=== PATIENT | male | born 1980 | race Caucasian/White ===

== ENCOUNTER 2021-03-31 01:41 | Day surgery (SDC) | payer OTHER, SELFPAY ==
[2021-03-14 14:01] VITALS: BMI 25.9
--- NOTE | 2021-03-30 12:27 | P.PNAN_ITS ---
Anes - Initial Pre Proc Eval Procedure: Operation Date: 03/31/21 08:30 Proposed Procedures p Esophagogastroduodenoscopy - Brandon Hampton MD Date/Time: 03/30/21 12:27 Surgeon: Brandon Hampton MD Pre Op Diagnosis: Dysphagia Patient Data Age: 40 Gender: M Height: 1.7 m Weight: 75 kg Allergies Allergy/AdvReac Type Severity Reaction Status Date / Time tramadol Allergy Intermediate rash Verified 03/31/21 07:26 Home Medications Medication Instructions Recorded Confirmed Type No Home Medications 03/14/21 03/31/21 History Patient hx anesthesia problems: none Family hx anesthesia problems: none [facility] Past Medical History Medical History (Updated 02/24/21 @ 10:58 by ANAY Bran) Asthma GERD (gastroesophageal reflux disease) Peptic ulcer disease Seizure as a child Surgical History Surgical History H/O left knee surgery H/O right knee surgery H/O ventral hernia repair x2 History of colonoscopy Status post left foot surgery x3 Status post right foot surgery Family History Family History Mother Hypertension Diabetes mellitus Skin cancer Father Cancer of spinal column Sibling Breast cancer Other Diabetes mellitus Cancer Other Family history of allergic disorder Social History Social History Smoking status: Never smoker Smoking end date: 10/07/07 Alcohol intake: never Substance use: unknown Living arrangements: with family Additional occupation/education comments: self employed Gender identity (if verbalized by the patient): Male Spiritual care concerns: No Anes - Eval Final PreProcedure Day of Procedure 03/30/21 12:27 Patient weight: normal Heart: regular rate and rhythm Lungs: clear to auscultation and normal air movement Airway: Mallampati scale class II Neurological: alert and oriented Last oral intake: >/= 8 hours ASA classification: II Emergent: no Anesthetic plan: proceed Anesthesia type and monitoring: general GIVS Informed Consent: The patient's anesthetic plan and its attendant risks and benefits were discussed with the patient/family/POA. Questions were solicited and answers provided to the satisfaction of the patient/family/POA.
[2021-03-31 07:27] VITALS: BP 144/85; PULSE 63; RESP 15; TEMP 36.4; O2SAT 100; BMI 26.8
[2021-03-31] MEDS: LACTATED RINGERS 1,000 ML 150 ML IV CONT (07:30)
--- NOTE | 2021-03-31 07:55 | PM.HPGS ---
History of Present Illness History of Present Illness Consent: Risks, benefits, and alternatives have been discussed and questions answered. Patient agrees to proceed with procedure. Chief complaint: Dysphagia Narrative: Junior Ba De Dios is a 40 year old male referred to office for c/o of dysphagia that is progressively getting worse over the past 1-2 years. Reports symptoms worse with breads and solids. States food gets stuck in mid chest area. He will drink more water to help pass the food but here lately this is not working as well. He had in EGD with Dr. Goldstein back in 2017 with esophagitis. He was started on omeprazole 20 mg daily but only took for one year then stopped. He reports reflux symptoms almost daily, worse at night. Also nausea and occasional dry heaving in the AM. He has mild improvement with tums. He denies Nsaid use. Reports that he chewed tobacco for 10 years but stopped when he was 27. Last colonoscopy in 2017 for diarrhea and rectal bleeding, was found to have sigmoid colitis and hemorrhoids (recs reviewed). He has been doing well since. Does report occasional blood on tissue after BM that is not bothersome and resolves in within 1-2 days. Review of Systems Review of Systems: All systems reviewed & are unremarkable except as noted in HPI and below PMFSH Past Medical History Medical History Asthma GERD (gastroesophageal reflux disease) Peptic ulcer disease Seizure as a child Surgical History Surgical History H/O left knee surgery H/O right knee surgery H/O ventral hernia repair x2 History of colonoscopy Status post left foot surgery x3 Status post right foot surgery Family History Family History Mother Hypertension Diabetes mellitus Skin cancer Father Cancer of spinal column Sibling Breast cancer Other Diabetes mellitus Cancer Other Family history of allergic disorder Social History Social History Smoking status: Never smoker Smoking end date: 10/07/07 Alcohol intake: never Substance use: unknown Living arrangements: with family Additional occupation/education comments: self employed Gender identity (if verbalized by the patient): Male Spiritual care concerns: No Meds Home Medications and Allergies Home Medications Medication Instructions Recorded Confirmed Type No Home Medications 03/14/21 03/31/21 History Allergies Allergy/AdvReac Type Severity Reaction Status Date / Time tramadol Allergy Intermediate rash Verified 03/31/21 07:26 Vital Signs Vital Signs - 24 hr 03/31/21 07:27 Temperature 36.4 C L Pulse Rate 63 Respiratory Rate 15 Blood Pressure 144/85 H Pulse Oximetry 100 Exam Const: General: alert Orientation/consciousness: patient oriented x3 Resp: Auscultation: clear to auscultation bilaterally Cardio: Rhythm: regular rhythm GI: GI Palp: Yes Soft to palpation and No Tenderness to palpation present (GI) Neuro: General: patient oriented x3 Assessment and Plan Assessment and plan (1) Dysphagia: Code(s): R13.10 - Dysphagia, unspecified Status: Acute Assessment and Plan: EGD with possible biopsy or dilatation or cautery.
[2021-03-31 08:44] VITALS: BP 113/82; PULSE 63; RESP 16; O2SAT 98
[2021-03-31 08:54] VITALS: BP 112/80; PULSE 56; RESP 17; O2SAT 98
[2021-03-31 09:04] VITALS: BP 125/83; PULSE 63; RESP 18; O2SAT 100
== END 2021-03-31 09:13 | disposition home or self-care (01) ==
PROVIDERS: PCP Nurse Practitioner Psychiatric/Mental Health; Visit Provider Internal Medicine Gastroenterology
PROC: 0DJ08ZZ Inspection of Upper Intestinal Tract, Via Natural or Artificial Opening Endoscopic (ICD-10-PCS; CPT 43235; principal; 2021-03-31 08:30)
DX: R13.19 Other dysphagia (principal); K21.00 Gastro-esophageal reflux disease with esophagitis, without bleeding; K22.2 Esophageal obstruction; K44.9 Diaphragmatic hernia without obstruction or gangrene; J45.909 Unspecified asthma, uncomplicated; Z87.11 Personal history of peptic ulcer disease
CPT/HCPCS: 43249; 88305; C1726; J2001; J2704; J7120

== ENCOUNTER 2023-07-19 03:53 | Day surgery (SDC) | payer OTHER, SELFPAY ==
[2023-07-05 14:30] VITALS: BMI 25.9
--- NOTE | 2023-07-17 21:05 | PM.HPGS ---
History of Present Illness History of Present Illness Consent: Risks, benefits, and alternatives have been discussed and questions answered. Patient agrees to proceed with procedure. Chief complaint: GERD w/o esophagitis, Dysphagia Narrative: Junior Ba De Dios is a 42 year old male having increasing dysphgia. Had EGD and dilatation of stricture 2 years ago. Review of Systems Review of Systems: All systems reviewed & are unremarkable except as noted in HPI and below PMFSH Past Medical History Medical History Asthma GERD (gastroesophageal reflux disease) Peptic ulcer disease Seizure as a child Surgical History Surgical History H/O left knee surgery H/O right knee surgery H/O ventral hernia repair x2 History of colonoscopy Status post left foot surgery x3 Status post right foot surgery Family History Family History Mother Hypertension Diabetes mellitus Skin cancer Father Cancer of spinal column Sibling Breast cancer Other Diabetes mellitus Cancer Other Family history of allergic disorder Social History Social History Smoking status: Never smoker Smoking end date: 10/07/07 Alcohol intake: never Substance use: never Substance use type: does not use Living arrangements: with family Occupation/Education: occupation Additional occupation/education comments: self employed Gender identity (if verbalized by the patient): Male Spiritual care concerns: No Meds Home Medications and Allergies Home Medications Medication Instructions Recorded Confirmed Type No Home Medications 07/05/23 07/19/23 History Allergies Allergy/AdvReac Type Severity Reaction Status Date / Time tramadol Allergy Intermediate rash Verified 07/19/23 08:56 Exam Const: General: alert Orientation/consciousness: patient oriented x3 Resp: Auscultation: clear to auscultation bilaterally Cardio: Rhythm: regular rhythm GI: GI Palp: Yes Soft to palpation and No Tenderness to palpation present (GI) Neuro: General: patient oriented x3 Assessment and Plan Assessment and plan (1) Dysphagia: Code(s): R13.10 - Dysphagia, unspecified Status: Acute Assessment and Plan: EGD with possible biopsy or dilatation or cautery.
[2023-07-19 08:57] VITALS: BP 131/78; PULSE 65; RESP 16; TEMP 36.4; O2SAT 100; BMI 26.9
[2023-07-19] MEDS: LACTATED RINGERS 1,000 ML 150 ML IV CONT (09:01)
--- NOTE | 2023-07-19 09:43 | P.PNAN_ITS ---
Anes - Initial Pre Proc Eval Procedure: Operation Date: 07/19/23 09:30 Proposed Procedures p Esophagogastroduodenoscopy EGD possible dilatation - Brandon Hampton MD Date/Time: 07/19/23 09:43 Surgeon: Brandon Hampton MD Pre Op Diagnosis: GERD w/o esophagitis, Dysphagia Patient Data Age: 42 Gender: M Height: 1.7 m Weight: 77.8 kg Last Vital Signs Temp 97.6 F 07/19/23 08:57 Pulse 65 07/19/23 08:57 Resp 16 07/19/23 08:57 BP 131/78 07/19/23 08:57 Pulse Ox 100 07/19/23 08:57 O2 Del Method Room Air 07/19/23 08:57 Allergies Allergy/AdvReac Type Severity Reaction Status Date / Time tramadol Allergy Intermediate rash Verified 07/19/23 08:56 Home Medications Medication Instructions Recorded Confirmed Type No Home Medications 07/05/23 07/19/23 History Patient hx anesthesia problems: none Family hx anesthesia problems: none Results Review: All pre-operative results and documents have been reviewed as part of the pre- operative evaluation. REPLACED BY [facility] Past Medical History Medical History Asthma GERD (gastroesophageal reflux disease) Peptic ulcer disease Seizure as a child Surgical History Surgical History H/O left knee surgery H/O right knee surgery H/O ventral hernia repair x2 History of colonoscopy Status post left foot surgery x3 Status post right foot surgery Family History Family History Mother Hypertension Diabetes mellitus Skin cancer Father Cancer of spinal column Sibling Breast cancer Other Diabetes mellitus Cancer Other Family history of allergic disorder Social History Social History Smoking status: Never smoker Smoking end date: 10/07/07 Alcohol intake: never Substance use: never Substance use type: does not use Living arrangements: with family Occupation/Education: occupation Additional occupation/education comments: self employed Gender identity (if verbalized by the patient): Male Spiritual care concerns: No Anes - Eval Final PreProcedure Day of Procedure 07/19/23 09:43 Patient weight: normal Heart: regular rate and rhythm Lungs: clear to auscultation Airway: Mallampati scale class II Neurological: alert and oriented Last oral intake: >/= 8 hours ASA classification: II Emergent: no Anesthetic plan: proceed Anesthesia type and monitoring: general GIVS and standard monitoring Results Review: All pre-operative results and documents have been reviewed as part of the pre- operative evaluation. Informed Consent: The patient's anesthetic plan and its attendant risks and benefits were discussed with the patient/family/POA. Questions were solicited and answers provided to the satisfaction of the patient/family/POA.
[2023-07-19 10:01] VITALS: BP 94/62; PULSE 60; RESP 15; O2SAT 100
[2023-07-19 10:11] VITALS: BP 109/77; PULSE 59; RESP 17; O2SAT 100
[2023-07-19 10:21] VITALS: BP 109/74; PULSE 56; RESP 16; O2SAT 99
== END 2023-07-19 10:44 | disposition home or self-care (01) ==
PROVIDERS: Visit Provider Internal Medicine Gastroenterology
PROC: 0DJ08ZZ Inspection of Upper Intestinal Tract, Via Natural or Artificial Opening Endoscopic (ICD-10-PCS; CPT 43235; principal; 2023-07-19 09:30)
DX: K22.2 Esophageal obstruction (principal); K21.00 Gastro-esophageal reflux disease with esophagitis, without bleeding
CPT/HCPCS: 43249; 88305; C1726; J2001; J2704; J7120